=== PATIENT | female | born 1995 | race Caucasian/White ===

== ENCOUNTER 2023-11-17 15:22 | Emergency (ER) | payer OTHER, SELFPAY ==
[2023-11-17 15:33] VITALS: BP 109/80; PULSE 97; RESP 16; TEMP 36.7; O2SAT 100
--- NOTE | 2023-11-17 16:29 | ED.EYEPROB ---
HPI - Eye Problem General Chief complaint: Eye Problems Stated complaint: [facility] Source: patient, RN notes reviewed and old records reviewed Mode of arrival: ambulatory Limitations: no limitations History of Present Illness HPI Narrative: 28-year-old female presents to [facility] with bilateral eye redness, irritation, drainage, crusting that started yesterday. Patient states is worse in right eye. But now is noticing in left eye. Related Data Home Medications Medication Instructions Recorded Confirmed dextroamphetamine-amphetamine 5 mg 5 mg PO BID 11/17/23 11/17/23 tablet Allergies Allergy/AdvReac Type Severity Reaction Status Date / Time No Known Allergies Allergy Verified 11/17/23 16:18 Review of Systems Constitutional: Constitutional: Reports no additional constitutional complaints, Denies body ache(s), Denies chills, Denies fatigue, Denies fever(s) and Denies headache(s) Eyes: Eyes: Reports as per HPI, Denies blurry vision, Denies change in vision and Denies photophobia Comments: Redness, irritation, drainage ENT: Reports system reviewed and no additional complaints, except as documented, Denies vertigo, Denies dizziness, Denies ear discharge, Denies otalgia, Denies facial pain, Denies headache(s), Denies nasal congestion, Denies nasal discharge, Denies sinus pain, Denies sinus pressure and Denies sore throat Cardiovascular: Cardiovascular: Reports no additional cardiovascular complaints, Denies chest pain, Denies chest pain at rest, Denies rapid heart rate and Denies dyspnea Respiratory: Respiratory: Reports no additional respiratory complaints, Denies chest congestion, Denies cough, Denies pain on inspiration, Denies pain with cough and Denies dyspnea Gastrointestinal: Gastrointestinal: Denies abdominal pain, Denies diarrhea, Denies nausea and Denies vomiting Integumentary/Breasts: Skin/Breast: Denies rash Neurologic: Reports system reviewed and no additional complaints, except as documented, Denies vertigo, Denies dizziness and Denies headache(s) Endocrine: Endocrine: Denies fatigue PMFSH Comments At the time of my signature, I reviewed and agree with the nursing past medical, surgical, social, and family history. There is no relevant family history pertinent to the patient complaint. Exam Const: General: cooperative, healthy appearing, no acute distress and well nourished Nutritional Appearance: well nourished Orientation/consciousness: patient oriented x3 Limitations: no limitations HENMT: Head: normal to inspection and normocephalic Ears: external ears normal Face/Nose/Sinus: normal facial exam Face and sinus: normal facial exam Mouth: Yes Normal oral and palatal mucosa present, Yes oropharynx normal and Yes moist mucous membranes Throat: tonsils normal, uvula midline and no uvular edema Eyes: Conjunctivae: conjunctival abnormality bilateral ( erythematous with yellow discharge) discharge purulent Pupils: Equal, round and reactive pupils present Resp: Effort & Inspection: normal respiratory effort, able to speak in complete sentences, no audible wheezes, no cough, no respiratory distress and no retractions Auscultation: clear to auscultation bilaterally, no crackles, no rales, no rhonchi and no wheezes Cardio: Rate: regular rate Rhythm: regular rhythm Skin: General skin exam: normal color and no rashes or lesions noted Neuro: General: patient oriented x3 Cranial nerves: Yes Equal, round and reactive pupils present Psych: Appearance: grossly normal Mental Status: mental status grossly normal Speech and movement: Normal speech and movement present Affect: normal affect Course Course Emergency Course: Patient is aware of diagnosis, understands and agrees to treatment plan.? Anticipatory guidance given.? Patient agrees to follow-up as directed and is aware of reasons to seek care at the emergency department. Some parts of this dictation were generated by [email or web address]
== END 2023-11-17 16:39 | disposition home or self-care (01) ==
PROVIDERS: Emergency Provider Registered Nurse
DX: H10.9 Unspecified conjunctivitis (principal)
CPT/HCPCS: 99213; G0463